=== PATIENT | female | born 1990 | race Caucasian/White ===

== ENCOUNTER 2022-11-09 07:41 | Inpatient (IN) ==
[2022-11-09] MEDS ORDERED: LIDOCAINE 1% LOCAL 20 ML VIAL INFIL PRN (08:55)
[2022-11-09] MEDS ORDERED: OXYTOCIN 30 UNITS/500 ML BAG IV PRN ×3 (08:55→16:21)
--- NOTE | 2022-11-09 09:01 | History & Physical Report ---
Date of Service November 09, 2022 Assessment & Plan (1) 40 weeks gestation of : Plan: Admit, routine labs, COVID testing We will start her on oxytocin for augmentation Epidural if patient request Display spontaneous vaginal delivery (2) Rh negative status during in third trimester, antepartum: (3) Antepartum anemia complicating in third trimester: (4) Abnormal ultrasound: Plan: Pediatric Surgery consult as an out-patient service after delivery Admission and Anticipated Discharge Date Admission Date: November 09, 2022 History of Present Illness Chief Complaint: IOL Primary Care Provider: Mariza Blackburn DO Patient is a 32-year-old -0-0-2 at 40 weeks and 2 days is dated by last menstrual period consistent with a 7-week ultrasound who presents for induction of labor. Patient denies contractions, leaking of fluid or vaginal bleeding. Notes good movement. Denies headache, blurry vision, right upper quadrant or epigastric pain. Otherwise feeling well. complications include possible ovarian torsion who was seen by MFM. MFM - 36 weeks: There is a heterogeneous mass with debris located in the left lower quadrant of the fetus. This measures 3.1 cm in its largest diameter. The wall of the cyst is somewhat cobbledwith a clear delineation between fluid and debris. This debris inside of the cyst most likely represents hemorrhage. This most likely represents an ovarian cyst with hemorrhage and possible torsion. Pediatric Surgery was consulted and agreed with a delivery at [facility] with Pediatric Surgery consult as an out-patient service. Angela gave verbal consent for [facility] facilities Repeat ultrasound on 11/01/2022 showed: Mildly increased 4.5 cm cystic and solid mass in the right lower quadrant, previously 3.9 cm. complications include Rh- status and antepartum anemia Allergies Allergy/AdvReac Type Severity Reaction Status Date / Time No Known Allergies Allergy Verified 11/09/22 07:48 Home Medications Medication Instructions Recorded Confirmed Type ascorbic acid (vitamin C) 250 mg 250 mg PO BID 11/09/22 11/09/22 History tablet (Vitamin C) docusate sodium 100 mg capsule 100 mg PO DAILY 11/09/22 11/09/22 History (Colace) ferrous sulfate 325 mg (65 mg 325 mg PO BID 11/09/22 11/09/22 History iron) tablet prenat.vits,gisselle,[id number] 1 tab PO DAILY 11/09/22 11/09/22 History Patient History Medical History (Updated 11/09/22 @ 09:04 by Mindi Ryan MD, PhD) Patient denies significant medical history Surgical History No pertinent past surgical history Social History Smoking Status: Never smoker Hx Alcohol Use: No Hx Substance Use: No Preferred Language: Martiniquais Communication Ability: Effective Visual Impairment: No Limitations Hearing Ability: Normal 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 Beliefs That Will Affect Care: None marital status: Current Living Situation: Spouse current occupational status: employed Other Information That Helps Us Care for You: No Feels Safe at Home: Yes Safety Concerns: Feels Safe At This Time Assistive Devices: None OB History SVDx2 [employer] History See record Review of Systems All systems reviewed & are unremarkable except as noted in HPI & below Physical Exam Constitutional: WD/WN, vitals as above Respiratory: normal respiratory effort, lungs clear to auscultation Cardiovascular: RRR, no murmur, no edema Gastrointestinal (Abdomen): normal bowel sounds, soft, nontender, no hepatosplenomegaly gravid uterus EFW 3500 g Genitourinary: no vaginal lesions, no adnexal mass normal external appearance and bladder normal to inspection heart tracing: Baseline 1 45-1 50, moderate variability, positive accelerations, no decelerations, category 1 tracing Tocometer: Irritable Cervix: 3 to 4 cm/50/-2 AROM performed with scant blood-tinged fluid cephalic Results & Data ([facility]) Vital Signs (Past 12 Hours) Vital Signs Temp Pulse Resp BP 11/09/22 07:45 37.0 C 97 H 20 126/72
[2022-11-09] MEDS: LACTATED RINGER'S 1,000 ML IV PRN ×2 (09:35→12:27)
[2022-11-09 09:44] LABS: Hemoglobin 12.4 g/dl (12.0-16.0); Mean Corpuscular Hemoglobin 28.6 pg (25.0-34.0); Mean Corpuscular Hgb Conc 34.4 g/dL (32.0-36.0); Mean Corpuscular Volume 83.1 fL (80.0-100.0); Mean Platelet Volume 12.6 fL (9.4-12.3); Platelet Count 131 K/uL (130-400); RDW Coefficient of Variation 14.4 % (11.5-14.5); RDW Standard Deviation 43.4 fL (36.4-46.3); Red Blood Count 4.33 M/uL (3.93-5.22); White Blood Count 10.77 K/ul (4.8-10.8)
[2022-11-09] MEDS ORDERED: fentaNYL citrate 100 MCG/2 ML VIAL ONE (11:45)
[2022-11-09] MEDS ORDERED: fentaNYL 2MCG/ML ROPIVACAINE 1.25MG/ML 100 ML BAG EPI ONE (11:45)
[2022-11-09] MEDS ORDERED: ePHEDrine sulfate 50 MG/ML AMP ONE (11:45)
[2022-11-09] MEDS ORDERED: LIDOCAINE 2%/EPINEPHRINE 1:200,000 20 ML SDV ONE (11:45)
[2022-11-09] MEDS ORDERED: BUPIVACAINE 0.25% 30 ML VIAL ONE (11:45)
[2022-11-09] MEDS ORDERED: SODIUM CHLORIDE 0.9% INJ 10 ML VIAL ONE (11:45)
[2022-11-09] MEDS ORDERED: ONDANSETRON INJ 2 MG/ML 2 ML VIAL IV PRN (12:00)
[2022-11-09] MEDS ORDERED: fentaNYL 2MCG/ML ROPIVACAINE 1.25MG/ML 100 ML BAG EPI PRN (12:00)
[2022-11-09] MEDS ORDERED: ePHEDrine sulfate 50 MG/ML AMP IV PRN (12:00)
[2022-11-09] MEDS ORDERED: NALOXONE HCL 1 MG in SODIUM CHLORIDE 0.9% 1000ML 1,000 ML IV PRN (12:00)
[2022-11-09] MEDS ORDERED: NALOXONE HCL 0.4 MG/1 ML VIAL/CARP IV PRN (12:00)
[2022-11-09] MEDS ORDERED: diphenhydrAMINE 50 MG/ML VIAL IV PRN (12:00)
[2022-11-09] MEDS ORDERED: NALBUPHINE HCL INJ 10 MG/ML AMP IV PRN (12:00)
--- NOTE | 2022-11-09 12:00 | Anesthesiology Consultation ---
Date of Service November 09, 2022 Assessment & Plan ASA ASA2 Proposed Anesthesia Anesthesia Type: General and Labor Epidural Risk / Benefits Reviewed With: PT / POA / Parent / Guardian, Accepts Plan and Informed Consent Obtained History Height/Weight Height: 5 ft 8 in Weight: 92.986 kg Allergies Allergy/AdvReac Type Severity Reaction Status Date / Time No Known Allergies Allergy Verified 11/09/22 07:48 Medications Home Medications Medication Instructions Recorded Confirmed Last Taken ascorbic acid (vitamin C) 250 mg 250 mg PO BID 11/09/22 11/09/22 11/09/22 06:00 tablet (Vitamin C) docusate sodium 100 mg capsule 100 mg PO DAILY 11/09/22 11/09/22 11/09/22 06:00 (Colace) ferrous sulfate 325 mg (65 mg 325 mg PO BID 11/09/22 11/09/22 11/09/22 06:00 iron) tablet prenat.vits,gisselle,[id number] 1 tab PO DAILY 11/09/22 11/09/22 11/09/22 06:00 Active Medications Generic Name Dose Route Start Last Admin Trade Name Freq PRN Reason Stop Dose Admin Lactated Ringer's 1,000 mls @ 125 mls/hr 11/09/22 08:55 11/09/22 11:46 Lr IV 11/11/22 08:54 999 mls/hr .Q8H PRN Infusion L&D Protocol Protocol Oxytocin 30 units in 500 mls @ 8 mls/hr 11/09/22 09:03 11/09/22 11:20 Pitocin IV 11/11/22 09:02 0.48 units/hr .Q24H PRN 8 mls/hr Labor Induction/Augmentation Titration Protocol 0.48 UNITS/HR Past Medical History Medical History Patient denies significant medical history Exercise / Class Metabolic Activity II 4-5 Yardwork/Stairs/Walk up hill Past Surgical History Surgical History No pertinent past surgical history Past Anesthesia History No Hx of Anesthesia Complications and No Family Hx of Anesthesia Complications History of PONV No Hx of PONV and No Hx of Motion Sickness Social History Smoking Status: Never smoker Hx Alcohol Use: No Hx Substance Use: No Review of Systems denies fever/cough/ colds/ chest pain/ SOB/ LUIS CARLOS denies LUIS CARLOS Physical Exam Vital Signs Last Vital Signs Temp 37.0 C 11/09/22 07:45 Pulse 83 11/09/22 11:58 Resp 16 11/09/22 10:43 BP 121/72 11/09/22 11:42 Pulse Ox 100 11/09/22 11:58 ENMT Mouth: no TMJ abnormality and no dentition abnormality Thyromental Distance: > or= 3.5 Finger Breadths Mallampati Class: II Neck neck extension not limited Respiratory normal respiratory effort; no respiratory distress Auscultation: lungs clear to auscultation bilaterally Cardiovascular Rate/Rhythm: regular rate and regular rhythm Neurologic moves all extremities Psychiatric Orientation: alert and oriented x 3 Testing Laboratory Results 11/09/22 09:11 Blood Type A Negative 11/09/22 09:11 Antibody Screen NEGATIVE 11/09/22 09:11
--- NOTE | 2022-11-09 14:27 | Labor Progress Brief Note ---
Date of Service November 09, 2022 Subjective Patient comfortable on epidural at this time, no complaints Assessment & Plan (1) 40 weeks gestation of : Plan: Continue oxytocin for augmentation Anticipate spontaneous vaginal delivery (2) Rh negative status during in third trimester, antepartum: Plan: RhoGAM to be given if indicated (3) Antepartum anemia complicating in third trimester: (4) Abnormal ultrasound: Plan: Pediatric Surgery consult as an out-patient service after delivery Admission and Anticipated Discharge Date Admission Date: November 09, 2022 Physical Exam Constitutional: WD/WN, vitals as above Respiratory: normal respiratory effort, lungs clear to auscultation Cardiovascular: RRR, no murmur, no edema Gastrointestinal (Abdomen): normal bowel sounds, soft, nontender, no hepatosplenomegaly Genitourinary: no vaginal lesions, no adnexal mass normal external appearance and bladder normal to inspection heart tracing: Baseline 1 30-1 35, moderate variability, positive accelerations, no decelerations, category 1 tracing Tocometer: Contractions every 2 minutes, oxytocin at 14 milliunits/h Cervix: 5-6/90/-1, IUPC was attempted to be placed, unable to place due to resistance, no cord felt, no complications Results & Data ([facility]) Vital Signs (Past 12 Hours) Vital Signs Temp Pulse Resp BP Pulse Ox 11/09/22 14:23 71 100 11/09/22 14:22 73 115/55 L 11/09/22 14:18 93 H 100 11/09/22 14:13 77 100 11/09/22 14:08 79 100 11/09/22 14:05 74 111/58 L 11/09/22 14:03 100 11/09/22 14:03 78 11/09/22 14:03 76 132/102 H 11/09/22 13:58 82 100 11/09/22 13:53 82 100 11/09/22 13:48 73 94/57 L 99 11/09/22 13:43 73 100 11/09/22 13:38 75 98 11/09/22 13:33 78 100 11/09/22 13:32 76 103/58 L 11/09/22 13:30 20 11/09/22 13:30 20 11/09/22 13:28 72 95/51 L 100 11/09/22 13:23 87 99 11/09/22 13:22 76 100/58 L 11/09/22 13:18 88 99 11/09/22 13:17 77 107/57 L 11/09/22 13:13 84 99 11/09/22 13:12 76 109/53 L 11/09/22 13:09 70 101/59 L 11/09/22 13:00 20 11/09/22 13:00 36.7 C 20 11/09/22 13:08 63 98 11/09/22 13:07 61 88/51 L 11/09/22 13:03 61 80/49 L 99 11/09/22 12:58 71 97 11/09/22 12:56 79 115/64 11/09/22 12:53 92 H 97 11/09/22 12:51 82 110/62 11/09/22 12:48 84 97 11/09/22 12:47 70 99/55 L 11/09/22 12:43 88 98 11/09/22 12:41 99 H 123/64 11/09/22 12:39 100 H 127/69 11/09/22 12:38 93 H 97 11/09/22 12:37 89 124/66 11/09/22 12:35 93 H 20 140/65 11/09/22 12:33 83 125/64 98 11/09/22 12:31 87 122/74 11/09/22 12:29 20 11/09/22 12:29 85 20 127/76 11/09/22 12:28 97 H 99 11/09/22 12:27 82 126/77 11/09/22 12:25 81 133/76 11/09/22 12:23 90 98 11/09/22 12:18 86 99 11/09/22 12:14 93 H 93 11/09/22 12:13 87 100 11/09/22 12:08 74 100 11/09/22 12:03 86 100 11/09/22 11:58 83 100 11/09/22 11:53 82 100 11/09/22 11:48 78 100 11/09/22 11:42 37.0 C 75 20 121/72 11/09/22 10:43 85 16 125/64 11/09/22 09:38 90 116/64 11/09/22 07:45 37.0 C 97 H 20 126/72
[2022-11-09] MEDS ORDERED: IBUPROFEN 600 MG TAB PO PRN (16:21)
[2022-11-09] MEDS ORDERED: DIPHTHERIA/TETANUS/PERTUSSIS 0.5 ML SYR/VIAL IM ONE (16:21)
[2022-11-09] MEDS ORDERED: bisacodyL 10 MG SUPP PR PRN (16:21)
[2022-11-09] MEDS ORDERED: BENZOCAINE 20% AER SPR 82.5 GM CAN EXT PRN (16:21)
[2022-11-09] MEDS ORDERED: ACETAMINOPHEN 325 MG TAB PO PRN (16:21)
[2022-11-09] MEDS ORDERED: HYDROCORTISONE ACETATE 25 MG SUPP PR PRN (16:21)
[2022-11-09] MEDS ORDERED: oxyCODONE/ACETAMINOPHEN 5mg/325mg TAB PO PRN (16:21)
--- NOTE | 2022-11-09 16:26 | Delivery Summary ---
Vaginal Delivery Summary Date of Service November 09, 2022 Vaginal Delivery Summary Delivery Note History synopsis: Patient is a 32-year-old -0-0-2 at 40 weeks and 2 days is dated by last menstrual period consistent with a 7-week ultrasound who presents for induction of labor. Patient denies contractions, leaking of fluid or vaginal bleeding. Notes good movement. Denies headache, blurry vision, right upper quadrant or epigastric pain. Otherwise feeling well. complications include possible ovarian torsion who was seen by RITCHIE. Labor Course: Patient 4 cm on admission, AROM done and started on pit. She recieved epidural and was checked and found to be 5-6 cm. Called out with pressure and found to be complete. I was called for delivery Delivery Summary: Patient was placed in the dorsal lithotomy position. She was prepped and draped in the usual sterile fashion. Upon maternal pushing the head was delivered atraumatically followed by the anterior shoulders, posterior shoulders then the remainder of the infants body. The infants mouth and nose were bulb suctioned with 1 min delayed cord clamping done. A female was delivered at 1610, weight pending, with APGARS of 8 at 1 minute and 9 at 5 minutes. The umbilical cord was clamped times two and cut. The was handed off to the awaiting nursing staff. Cord blood gases were (not) obtained. The placenta delivered intact with three vessel cord. Placenta was sent to pathology. Thirty units of Pitocin were added to the IV fluid and allowed to run freely. Uterine massage was performed until uterus was deemed firm. Upon inspection of the perineum, vagina and cervix were intact. First degree laceration was noted which was repaired with 3-0 vicryl in the usual fashion. Periurtehral tear noted, but hemostatic. not repaired. Upon re-inspection the patient was hemostatic. Uterus again massaged and found to be firm. Needle and sponge counts were correct. Patient was stable and allowed to recover in L&D room. was stable and remained in room with mother in the Family Care Unit. EBL 400mls
--- NOTE | 2022-11-09 18:01 | Anesthesia Procedure Note ---
Date of Service November 09, 2022 Anesthesia Post Epidural Note Vital Signs Vital Signs: Temp Pulse Resp BP Pulse Ox 36.8 C 86 20 124/59 L 100 11/09/22 15:00 11/09/22 17:56 11/09/22 17:54 11/09/22 17:56 11/09/22 16:03 Pain Intensity Bilateral Abdomen: Pain Intensity: 0 Notes Mental Status: alert / awake / arousable and participated in evaluation Nausea / Vomiting: adequately controlled Pain: adequately controlled Airway Patency, RR, SpO2: stable & adequate BP & HR: stable & adequate Hydration State: stable & adequate Neuraxial Anesthesia: was administered and sensory block is resolving Anesthetic Complications: no major complications apparent Epidural: Removed without complications and With tip intact
[2022-11-09] MEDS: DOCUSATE SODIUM 100 MG CAP PO SCH (21:19)
[2022-11-10 06:45] LABS: Hematocrit (blood only) 34.1 % (34.1-44.9); Hemoglobin 11.6 g/dl (12.0-16.0); Mean Corpuscular Volume 85.3 fL (80.0-100.0); Mean Platelet Volume 12.5 fL (9.4-12.3); Platelet Count 117 K/uL (130-400); RDW Coefficient of Variation 14.6 % (11.5-14.5); RDW Standard Deviation 45.2 fL (36.4-46.3); White Blood Count 11.37 K/ul (4.8-10.8)
[2022-11-10] MEDS ORDERED: PRENATAL VITAMIN 1 TAB PO SCH (08:00)
[2022-11-10] MEDS: DOCUSATE SODIUM 100 MG CAP PO SCH (08:00)
[2022-11-10] MEDS ORDERED: FERROUS SULFATE 325 MG TAB PO SCH (08:00)
--- NOTE | 2022-11-10 10:01 | Obstetrical Progress Note ---
Date of Service November 10, 2022 Subjective Ambulation: ambulating normally Voiding: no voiding problems Passing Gas:: Yes Diet Tolerance:: regular diet Lochia:: Small Feeding Type:: breast feeding Current Pain Level(1-10): 0 doing well Physical Exam Constitutional WD/WN, vitals as above Gastrointestinal (Abdomen) Inspection/Auscultation: abdomen normal to inspection abdomen soft and non-tender, fundus firm below U Musculoskeletal Extremities: extremities normal to inspection Skin no rashes, warm and dry Neurologic patellar DTR's 2+ bilat, sensation intact Psychiatric A+Ox3, euthymic affect Results & Data ([facility]) Vital Signs (Past 12 Hours) Vital Signs Temp Pulse Resp BP Pulse Ox O2 Del Method 11/10/22 03:05 36.6 C 89 18 116/73 98 Room Air 11/09/22 23:15 36.5 C 82 18 122/73 97 Room Air Laboratory Results 11/09/22 11/09/22 11/09/22 08:55 09:11 09:11 WBC 10.77 RBC 4.33 Hgb 12.4 Hct 36.0 MCV 83.1 MCH 28.6 MCHC 34.4 RDW Std Deviation 43.4 RDW Coeff of Michael 14.4 Plt Count 131 MPV 12.6 H SARS-CoV-2, RNA, NAAT NEGATIVE Blood Type A Negative Antibody Screen NEGATIVE 11/10/22 06:18 WBC 11.37 H RBC 4.00 Hgb 11.6 L Hct 34.1 MCV 85.3 MCH 29.0 MCHC 34.0 RDW Std Deviation 45.2 RDW Coeff of Michael 14.6 H Plt Count 117 L MPV 12.5 H SARS-CoV-2, RNA, NAAT Blood Type Antibody Screen
[2022-11-10] MEDS ORDERED: bisacodyL 5 MG TABEC PO SCH (20:00)
== END 2022-11-10 17:05 | disposition home or self-care (01) | DRG 806 ==
LOC: 4S1 07:41 → 4E2 20:20